=== PATIENT | female | born 1975 | race Caucasian/White ===

== ENCOUNTER 2020-02-14 14:34 | Inpatient (IN) | payer OTHER ==
[2020-02-14] MEDS ORDERED: LORazepam 2 MG/ML INJ IV PRN ×2 (14:41)
[2020-02-14] MEDS ORDERED: SODIUM CHLORIDE 0.9% 2,000 ML IV ONE (15:14)
[2020-02-14 15:17] LABS: Basophils % (A) 1 %; Eosinophils # (A) 0.1 k/uL (0-0.7); Eosinophils % (A) 2 %; HCT 38.4 % (34.0-46.0); HGB 12.4 gm/dL (11.4-16.0); Lymphocytes # (A) 1.1 k/uL (1.0-4.8); Lymphocytes % (A) 22 %; MCHC 32.2 g/dL (31.0-37.0); MCV 102.3 fL (80.0-100.0); Macrocytosis Slight; Mean Platelet Volume 9.2; Monocytes # (A) 0.5 k/uL (0-1.0); Monocytes % (A) 11 %; Neutrophils # (A) 3.1 k/uL (1.3-7.7); Neutrophils % (A) 62 %; Platelet Count 142 k/uL (150-450); RBC 3.75 m/uL (3.80-5.40); RDW 14.6 % (11.5-15.5)
[2020-02-14 15:27] LABS: Albumin 5.2 g/dL (3.5-5.0); Calcium 10.9 mg/dL (8.4-10.2); Magnesium 1.7 mg/dL (1.6-2.3); Total Bilirubin 1.2 mg/dL (0.2-1.3); Total Protein 8.7 g/dL (6.3-8.2)
--- NOTE | 2020-02-14 15:49 | ED ---
Alcohol HPI - General Source: patient, police, RN notes reviewed Mode of arrival: wheelchair Limitations: no limitations <Tomy Palmer - Last Filed: 02/14/20 17:40> <Patricia Whitehead - Last Filed: 02/15/20 00:11> - General Chief Complaint: Alcohol Stated Complaint: Detox Time Seen by Provider: 02/14/20 14:41 - History of Present Illness Initial Comments: 44-year-old female presents emergency Department with chief complaint of alcohol withdrawal. Patient states she drinks a half a gallon a day states that she has not drank in 4 days that she's been incarcerated. Patient is brought to emergency department as she's having severe hallucinations, withdrawal symptoms they report a seawall as high as 30. Patient has been placed on Valium. Patient has no physical complaints. She does admit to drug use. Patient has no history of hepatitis, or pancreatitis. Patient denies being suicidal or homicidal. (Tomy Palmer) - Related Data Home Medications Medication Instructions Recorded Confirmed Acetaminophen Tab [Tylenol] 650 mg PO TID PRN 02/14/20 02/14/20 Diazepam [Valium] See Taper PO DIRECTED 02/14/20 02/14/20 Promethazine [Phenergan] 25 mg PO TID PRN 02/14/20 02/14/20 Allergies Allergy/AdvReac Type Severity Reaction Status Date / Time No Known Allergies Allergy Unverified 02/14/20 15:57 Review of Systems ROS Other: All systems not noted in ROS Statement are negative. <Tomy Palmer - Last Filed: 02/14/20 17:40> ROS Other: All systems not noted in ROS Statement are negative. <Patricia Whitehead - Last Filed: 02/15/20 00:11> ROS Statement: Those systems with pertinent positive or pertinent negative responses have been documented in the HPI. Past Medical History History of Any Multi-Drug Resistant Organisms: None Reported Additional Past Surgical History / Comment(s): DNC Smoking Status: Current some day smoker Past Alcohol Use History: Abuse, Daily Past Drug Use History: None Reported <Tomy Palmer - Last Filed: 02/14/20 17:40> General Exam Limitations: no limitations General appearance: alert, in no apparent distress Head exam: Present: atraumatic, normocephalic, normal inspection Eye exam: Present: normal appearance, PERRL, EOMI. Absent: scleral icterus, conjunctival injection, periorbital swelling ENT exam: Present: normal exam, normal oropharynx, mucous membranes moist Neck exam: Present: normal inspection, full ROM. Absent: tenderness, meningismus, lymphadenopathy Respiratory exam: Present: normal lung sounds bilaterally. Absent: respiratory distress, wheezes, rales, rhonchi, stridor Cardiovascular Exam: Present: normal rhythm, tachycardia, normal heart sounds. Absent: systolic murmur, diastolic murmur, rubs, gallop, clicks GI/Abdominal exam: Present: soft, normal bowel sounds. Absent: distended, tenderness, guarding, rebound, rigid Neurological exam: Present: alert. Absent: oriented X3 Skin exam: Present: warm, dry, intact, normal color. Absent: rash <Tomy Palmer - Last Filed: 02/14/20 17:40> Course Vital Signs 02/14/20 02/14/20 14:35 18:00 Temperature 98.0 F 98.2 F Pulse Rate 112 H 101 H Respiratory 18 18 Rate Blood Pressure 123/92 138/76 O2 Sat by Pulse 99 99 Oximetry Medical Decision Making - Lab Data Result diagrams: 02/14/20 14:44 02/14/20 14:44 <Tomy Palmer - Last Filed: 02/14/20 17:40> - Lab Data Result diagrams: 02/14/20 14:44 02/14/20 14:44 <Patricia Whitehead - Last Filed: 02/15/20 00:11> - Medical Decision Making 44-year-old female presented for a withdrawal. Patient had persistent worsening symptoms last 4 days even while on Valium. Patient has a CIWA of 17. Patient will be admitted she does have a history of seizures. (Tomy Palmer) I was available for consultation in the emergency department. The history and physical exam were done by the midlevel provider. I was consulted for this patients care. I reviewed the case with the midlevel provider and based on their presentation of the patient, I agree with the assessment, medical decision making and plan of care as documented. Patients withdrawal seizures have been difficult to control while patient is incarcerated. Will admit patient to hospital on CIWA protocol. Spoke with Dr. Darling who accepted admission. Chart was dictated using OneTouch dictation software. Attempts were made to correct any dictation errors however some typographical errors may persist. Patient was seen during a national state of emergency due to the Covid-19 pandemic. (Patricia Whitehead) - Lab Data Lab Results 02/14/20 02/14/20 02/14/20 Range/Units 14:44 14:44 14:44 WBC 5.0 (3.8-10.6) k/uL RBC 3.75 L (3.80-5.40) m/uL Hgb 12.4 (11.4-16.0) gm/dL Hct 38.4 (34.0-46.0) % MCV 102.3 H (80.0-100.0) fL MCH 33.0 (25.0-35.0) pg MCHC 32.2 (31.0-37.0) g/dL RDW 14.6 (11.5-15.5) % Plt Count 142 L (150-450) k/uL Neutrophils % 62 % Lymphocytes % 22 % Monocytes % 11 % Eosinophils % 2 % Basophils % 1 % Neutrophils # 3.1 (1.3-7.7) k/uL Lymphocytes # 1.1 (1.0-4.8) k/uL Monocytes # 0.5 (0-1.0) k/uL Eosinophils # 0.1 (0-0.7) k/uL Basophils # 0.0 (0-0.2) k/uL Macrocytosis Slight Sodium 135 L (137-145) mmol/L Potassium 4.0 (3.5-5.1) mmol/L Chloride 101 (98-107) mmol/L Carbon Dioxide 29 (22-30) mmol/L Anion Gap 5 mmol/L BUN 39 H (7-17) mg/dL Creatinine 0.92 (0.52-1.04) mg/dL Est GFR (CKD-EPI)AfAm 87 (>60 ml/min/1.73 sqM) Est GFR (CKD-EPI)NonAf 76 (>60 ml/min/1.73 sqM) Glucose 97 (74-99) mg/dL Calcium 10.9 H (8.4-10.2) mg/dL Magnesium 1.7 (1.6-2.3) mg/dL Total Bilirubin 1.2 (0.2-1.3) mg/dL AST 32 (14-36) U/L ALT 35 H (4-34) U/L Alkaline Phosphatase 71 (38-126) U/L Total Protein 8.7 H (6.3-8.2) g/dL Albumin 5.2 H (3.5-5.0) g/dL Lipase 68 (23-300) U/L Urine Color Yellow Urine Appearance Clear (Clear) Urine pH 6.5 (5.0-8.0) Ur Specific [place] 1.023 (1.001-1.035) Urine Protein Trace H (Negative) Urine Glucose (UA) Negative (Negative) Urine Ketones Negative (Negative) Urine Blood Negative (Negative) Urine Nitrite Negative (Negative) Urine Bilirubin Negative (Negative) Urine Urobilinogen <2.0 (<2.0) mg/dL Ur Leukocyte Esterase Moderate H (Negative) Urine RBC 1 (0-5) /hpf Urine WBC 4 (0-5) /hpf Ur Squamous Epith Cells 6 H (0-4) /hpf Urine Bacteria Rare H (None) /hpf Hyaline Casts 8 H (0-2) /lpf Urine Mucus Rare H (None) /hpf Disposition <Tomy Palmer - Last Filed: 02/14/20 17:40> <Patricia Whitehead - Last Filed: 02/15/20 00:11> Clinical Impression: Alcohol withdrawal delirium Disposition: ADMITTED IP TO THIS HOSP Condition: Serious
[2020-02-14] MEDS ORDERED: NALOXONE 0.4 MG/ML 1 ML VIAL IV PRN (17:42)
[2020-02-14] MEDS ORDERED: ONDANSETRON 4 MG/2 ML VIAL IVP PRN (17:42)
[2020-02-14] MEDS ORDERED: SODIUM CHLORIDE 0.9% 1,000 ML with MVI, ADULT NO.4 WITH VIT K 10 ML, THIAMINE 100 MG, F... IV ONE ×4 (19:00)
[2020-02-14] MEDS: LORazepam 2 MG/ML INJ IV PRN (22:30)
[2020-02-14 22:43] LABS: Amphetamine Screen,Urine Not Detected (NotDetected); Barbiturate Screen,Urine Not Detected (NotDetected); Benzodiazepines Screen,Urine Detected (NotDetected); Cocaine Screen,Urine Not Detected (NotDetected); Methadone Screen, Urine Not Detected (NotDetected); Opiate Screen,Urine Not Detected (NotDetected); Oxycodone Screen, Urine Not Detected (NotDetected); Phencyclidine Screen,Urine Not Detected (NotDetected); Tricyclic Antidepressant,Urine Not Detected (NotDetected); Urn Cannabinoid Scrn Detected (NotDetected)
[2020-02-14 22:50] LABS: Appearance,Urine Clear (Clear); Bacteria,Urine Rare /hpf; Bilirubin,Urine Negative (Negative); Blood,Urine Negative (Negative); Color,Urine Yellow; Glucose,Urine (UA) Negative (Negative); Hyaline Casts,Urine 8 /lpf (0-2); Ketones,Urine Negative (Negative); Leukocyte Esterase,Urine Moderate (Negative); Mucus,Urine Rare /hpf; Nitrite,Urine Negative (Negative); PH, Urine 6.5 (5.0-8.0); Protein,Urine Trace (Negative); RBC,Urine 1 /hpf (0-5); Specific Gravity,Urine 1.023 (1.001-1.035); Squamous Epithelial Cell,Urine 6 /hpf (0-4); Urobilinogen,Urine <2.0 mg/dL (<2.0); WBC,Urine 4 /hpf (0-5)
--- NOTE | 2020-02-15 00:12 | P.HPIM ---
History of Present Illness H&P Date: 02/14/20 The patient is a 44-year-old female with a PMH of EtOH abuse and plaque psoriasis who presented to the emergency room under police custody for alcohol withdrawal. History was limited as the patient was agitated and did not wish to answer many questions. The patient had reportedly been incarcerated over the past few days and had become shaky and had been having hallucinations. The patient reports drinking half a gallon of vodka daily since the age of 16. She reports that her last drink was 4-5 days ago, and that she has been unable to drink since her incarceration. She reports a history of alcohol withdrawal seizures and admission to the ICU. Reports that her last seizure was many years ago. Patient reports that she has been getting the "shakes" and has been seeing things that aren't there. Reported some bruising of the arms and right knee pain which she attributes to her scuffle with the police over the past few days. Denied any additional complaints. She denied chest pain, shortness of breath, fever, chills. Denied nausea, vomiting, abdominal pain, or diarrhea. Laborator y evaluation revealed a sodium of 135, BUN 39, creatinine 0.92, calcium 10.9, AST 32, ALT 35, lipase 68, albumin 5.2, hemoglobin 12.4, with MCV 102.3, and platelet count 142. Review of Systems Pertinent positives and negatives as discussed in HPI, a complete review of sys tems was performed and all other systems are negative. Past Medical History History of Any Multi-Drug Resistant Organisms: None Reported Additional Past Surgical History / Comment(s): DNC Smoking Status: Current some day smoker Past Alcohol Use History: Abuse, Daily Past Drug Use History: None Reported Medications and Allergies Home Medications Medication Instructions Recorded Confirmed Type Acetaminophen Tab [Tylenol] 650 mg PO TID PRN 02/14/20 02/14/20 History Diazepam [Valium] See Taper PO DIRECTED 02/14/20 02/14/20 History Promethazine [Phenergan] 25 mg PO TID PRN 02/14/20 02/14/20 History Allergies Allergy/AdvReac Type Severity Reaction Status Date / Time No Known Allergies Allergy Unverified 02/14/20 15:57 Physical Exam Vitals: Vital Signs Temp Pulse Pulse Resp BP BP Pulse Ox 02/14/20 19:41 98.6 F 93 18 125/82 99 02/14/20 18:00 98.2 F 101 H 18 138/76 99 02/14/20 14:35 98.0 F 112 H 18 123/92 99 Intake and Output 02/14/20 02/14/20 02/14/20 06:59 14:59 22:59 Other: Weight 68.039 kg General: Disheveled female, non toxic, no distress, appears at stated age, normal weight Derm: Wood[place]-colored plaques noted on bilateral extensor surfaces including knees and elbows, no unusual ecchymoses, warm, dry Head: atraumatic, normocephalic, symmetric Eyes: EOMI, no lid lag, anicteric sclera, pupils equal round reactive to light ENT: Nose and ears atraumatic, no thrush, no pharyngeal erythema, tongue fasciculations noted Neck: No thyromegaly, no cervical lymphadenopathy, trachea midline, supple Mouth: no lip lesion, mucus membranes dry Cardiovascular: S1S2 reg, no murmur, positive posterior tibial pulse bilateral, no edema, capillary refill less than 2 seconds Lungs: CTA bilateral, no rhonchi, no rales , no accessory muscle use Abdominal: soft, nontender to palpation, no guarding, no appreciable organomegaly, normal bowel sounds Ext: no gross muscle atrophy, muscle strength 5 out of 5 in all 4 extremities grossly, no contractures, Neuro: CN II-XI grossly intact, light touch intact all 4 extremities, outstretched hand tremor noted Psych: Alert, oriented, appropriate affect Results CBC & Chem 7: 02/14/20 14:44 02/14/20 14:44 Labs: Abnormal Lab Results - Last 24 Hours (Table) 02/14/20 02/14/20 Range/Units 14:44 14:44 RBC 3.75 L (3.80-5.40) m/uL MCV 102.3 H (80.0-100.0) fL Plt Count 142 L (150-450) k/uL Sodium 135 L (137-145) mmol/L BUN 39 H (7-17) mg/dL Calcium 10.9 H (8.4-10.2) mg/dL ALT 35 H (4-34) U/L Total Protein 8.7 H (6.3-8.2) g/dL Albumin 5.2 H (3.5-5.0) g/dL Assessment and Plan Plan: Alcohol withdrawal -Thiamine, folate, multivitamin -IV fluids -CIWA protocol -Monitor electrolytes daily and replace as needed -Fall, aspiration, seizure precautions Elevated BUN, Hypercalcemia -Likely secondary to dehydration -Continue with IV fluids Plaque psoriasis -Advised patient to follow-up as an outpatient with her PCP DVT prophylaxis -IPCDs The patient is admitted with an anticipated greater than 2 midnight stay for evaluation of EtOH withdrawal CODE STATUS: Full Code Discussed with: Patient Anticipated discharge date: 2-[address]: Police custody A total of 40 minutes was spent on the care of this complex patient more than 50% of the time was spent in counseling and care coordination.
[2020-02-15 05:49] LABS: HCT 35.5 % (34.0-46.0); HGB 11.6 gm/dL (11.4-16.0); MCHC 32.6 g/dL (31.0-37.0); MCV 104.4 fL (80.0-100.0); Macrocytosis Moderate; Mean Platelet Volume 8.3; Platelet Count 137 k/uL (150-450); RDW 14.6 % (11.5-15.5); WBC 4.1 k/uL (3.8-10.6)
[2020-02-15] MEDS: FOLIC ACID-VIT B COMPLEX-VIT C 1 CAP PO SCH (08:24)
[2020-02-15] MEDS: THIAMINE 200 MG in SODIUM CHLORIDE 0.9% 100 ML IVPB SCH ×2 (08:24→20:48)
[2020-02-15 09:52] LABS: African American GFR (CKD) 103.2 (60.0-200.0); Albumin/Globulin Ratio 1.9 (1.60-3.17); Anion Gap 7.3 mmol/L (4.00-12.00); BUN/Creat Ratio 27.5 Ratio (12.00-20.00); Calcium 8.8 mg/dL (8.7-10.3); Carbon Dioxide 26.7 mmol/L (21.6-31.8); Globulin 2.1 g/dL (1.6-3.3); Magnesium 1.5 mg/dL (1.5-2.4); Potassium 3.2 mmol/L (3.5-5.5); Total Bilirubin 0.8 mg/dL (0.3-1.2); Total Protein 6.1 g/dL (6.2-8.2)
[2020-02-15] MEDS: LORazepam 2 MG/ML INJ IV PRN ×3 (12:44→20:47)
[2020-02-15] MEDS ORDERED: POTASSIUM CHLORIDE ER 20 MEQ TAB.ER PO STA (16:23)
--- NOTE | 2020-02-15 16:31 | P.PN ---
Subjective Progress Note Date: 02/15/20 (delayed charting seen at 1140) Principal diagnosis: etoh withdrawal Patient is 44-year-old female with alcohol abuse and plaque psoriasis presented to the emergency department in police custody for alcohol withdrawal. Patient has been incarcerated since 02/09 began having hallucinations and shaking. She reported drinking approximately one half gallon daily since the age of 16. In the ER she underwent an extensive evaluation. On arrival she was tachycardic with pulse of 112. Initial laboratory analysis showed platelets of 142, sodium 135, BUN 39, calcium 10.9, ALT 35, albumin 5.2, urine was positive for benzodiazepines and marijuana, urinalysis moderate leukocyte esterase. She had elevated CIWA score and she was therefore admitted for management of her alcohol withdrawal. Initially she had improvement of this with use of the CIWA score however on the afternoon of 02/14 she began having recurrent riders and diaphoresis. Patient seen and examined at bedside. She reports feeling "terrible". She continues to try to keep her eyes closed does not make eye contact, refuses to answer questions because she "feels awful". She refuses to move her left arm for me to check for asterixis secondary to there being an IV in her arm. She refuses to hold on her covers initially. She is very noncompliant with examination and questioning. She is also inconsistent on her last alcohol was initially saying it was one day ago but then stating she's been incarcerated for 5 days. Objective - Vital Signs Vital signs: Vital Signs Temp 98.5 F 02/15/20 05:25 Pulse 75 02/15/20 05:25 Resp 16 02/15/20 05:25 BP 119/77 02/15/20 05:25 Pulse Ox 98 02/15/20 05:25 Intake & Output 02/14/20 02/15/20 02/15/20 18:59 06:59 18:59 Intake Total 360 100 Balance 360 100 Weight 68.039 kg 68.039 kg Intake: Intake, IV Titration 100 Amount Sodium Chloride 0.9% 1, 100 000 ml @ 100 mls/hr IV . Q10H7M ONE with Mvi, Adult No.4 with Vit K 10 ml with Thiamine 100 mg with Folic Acid 1 mg Rx#: [id number] Oral 360 Other: # Voids 2 - Exam General: non toxic, no distress, appears at stated age Derm: warm, dry Head: atraumatic, normocephalic, symmetric Eyes: EOMI, no lid lag, anicteric sclera Mouth: no lip lesion, mucus membranes moist Cardiovascular: S1S2 reg, no murmur, positive posterior tibial pulse bilateral, Lungs: CTA bilateral, no rhonchi, no rales, no accessory muscle use Abdominal: soft, nontender to palpation, no guarding, no appreciable organomegaly Ext: no gross muscle atrophy, no edema, no contractures Neuro: CN II-XI grossly intact, no focal neuro deficits, no asterisix, no tremors Psych: Alert, oriented, appropriate affect - Labs CBC & Chem 7: 02/15/20 05:31 02/15/20 05:31 Labs: Abnormal Lab Results - Last 24 Hours (Table) 02/14/20 02/14/20 02/15/20 Range/Units 14:44 22:25 05:31 RBC 3.40 L (3.80-5.40) m/uL MCV 104.4 H (80.0-100.0) fL Plt Count 137 L (150-450) k/uL Potassium (3.5-5.5) mmol/L BUN/Creatinine Ratio (12.00-20.00) Ratio Glucose (70-110) mg/dL Total Protein (6.2-8.2) g/dL Urine Protein Trace H (Negative) Ur Leukocyte Esterase Moderate H (Negative) Ur Squamous Epith Cells 6 H (0-4) /hpf Urine Bacteria Rare H (None) /hpf Hyaline Casts 8 H (0-2) /lpf Urine Mucus Rare H (None) /hpf U Benzodiazepines Scrn Detected H (NotDetected) U Marijuana (THC) Screen Detected H (NotDetected) 02/15/20 Range/Units 05:31 RBC (3.80-5.40) m/uL MCV (80.0-100.0) fL Plt Count (150-450) k/uL Potassium 3.2 L (3.5-5.5) mmol/L BUN/Creatinine Ratio 27.50 H (12.00-20.00) Ratio Glucose 116 H (70-110) mg/dL Total Protein 6.1 L (6.2-8.2) g/dL Urine Protein (Negative) Ur Leukocyte Esterase (Negative) Ur Squamous Epith Cells (0-4) /hpf Urine Bacteria (None) /hpf Hyaline Casts (0-2) /lpf Urine Mucus (None) /hpf U Benzodiazepines Scrn (NotDetected) U Marijuana (THC) Screen (NotDetected) Assessment and Plan Assessment: Alcohol withdrawal -[facility] protocol -Thiamine, folic acid, multivitamins -IV fluids -Seizure precautions -Supportive care Hypokalemia -Replace and recheck in a.m. thrombocytopenia -Suspect secondary to underlying liver disease versus bone marrow suppression from EtOH use -Follow CBC intermittently Dehydration, resolved Hypercalcemia, resolved Plaque psoriasis-outpatient follow-up DVT prophylaxis: SCDs Discussed with: Patient, nursing Anticipated discharge: in AM Anticipated discharge place: [facility] A total of 35 minutes was spent on the care of this complex patient more than 50% of the time was spent in counseling and care coordination.
[2020-02-15 20:34] VITALS: RESP 18
[2020-02-16 03:59] LABS: HCT 39.3 % (34.0-46.0); HGB 12.5 gm/dL (11.4-16.0); MCH 33.7 pg (25.0-35.0); MCHC 31.8 g/dL (31.0-37.0); MCV 106.1 fL (80.0-100.0); Macrocytosis Moderate; Mean Platelet Volume 8.8; Platelet Count 150 k/uL (150-450); RBC 3.71 m/uL (3.80-5.40); RDW 14.8 % (11.5-15.5)
[2020-02-16] MEDS: THIAMINE 200 MG in SODIUM CHLORIDE 0.9% 100 ML IVPB SCH (08:25)
[2020-02-16] MEDS: FOLIC ACID-VIT B COMPLEX-VIT C 1 CAP PO SCH (08:26)
[2020-02-16 09:41] LABS: African American GFR (CKD) 127.6 (60.0-200.0); Albumin 4.1 g/dL (3.80-4.90); Albumin/Globulin Ratio 1.78 (1.60-3.17); Anion Gap 9.7 mmol/L (4.00-12.00); Carbon Dioxide 26.3 mmol/L (21.6-31.8); Globulin 2.3 g/dL (1.6-3.3); Magnesium 1.5 mg/dL (1.5-2.4); Non-African American GFR(CKD) 110.1 (60.0-200.0); Potassium 3.4 mmol/L (3.5-5.5); Total Bilirubin 0.6 mg/dL (0.3-1.2); Total Protein 6.4 g/dL (6.2-8.2)
[2020-02-16 11:25] VITALS: BP 128/83; PULSE 70; TEMP 98.5
--- NOTE | 2020-02-16 12:06 | P.DS ---
Providers Date of admission: 02/14/20 17:29 Expected date of discharge: 02/16/20 Attending physician: Ambika Bruno MD Primary care physician: Stated None Hospital Course: Discharge Diagnosis: ETOH withdrawal Hypokalemia Thrombocytopenia Dehydration Hypercalcemia Plaque psoriasis Hospital Course: Patient is 44-year-old female with alcohol abuse and plaque psoriasis presented to the emergency department in police custody for alcohol withdrawal. Patient has been incarcerated since 02/09 began having hallucinations and shaking. She reported drinking approximately one half gallon daily since the age of 16. In the ER she underwent an extensive evaluation. On arrival she was tachycardic with pulse of 112. Initial laboratory analysis showed platelets of 142, sodium 135, BUN 39, calcium 10.9, ALT 35, albumin 5.2, urine was positive for benzodiazepines and marijuana, urinalysis moderate leukocyte esterase. She had elevated CIWA score and she was therefore admitted for management of her alcohol withdrawal. Initially she had improvement of this with use of the CIWA score however on the afternoon of 02/14 she began having recurrent riders and diaphoresis. Patient seen and examined at bedside. Not feeling well. + nausea, states she is sweating and having tremors. [place] not diaphoretic on exam and no tremor when distracted. Vital signs reviewed and stable. General: non toxic, no distress, appears at stated age Derm: warm, dry Head: atraumatic, normocephalic, symmetric Eyes: EOMI, no lid lag, anicteric sclera Mouth: no lip lesion, mucus membranes moist Cardiovascular: S1S2 reg, no murmur, positive posterior tibial pulse bilateral, q Lungs: CTA bilateral, no rhonchi, no rales , no accessory muscle use Abdominal: soft, nontender to palpation, no guarding, no appreciable organomegaly Ext: no gross muscle atrophy, no edema, no contractures Neuro: CN II-XI grossly intact, no focal neuro deficits Psych: Alert, oriented, appropriate affect A total of 35 minutes of time were spent preparing this complex discharge summary . Patient Condition at Discharge: Stable Plan - Discharge Summary New Discharge Prescriptions: New Folic Acid 1 mg PO DAILY #15 tablet Thiamine [Vitamin B-1] 100 mg PO DAILY #30 tablet Diazepam [Valium] See Taper PO Q8H 8 Days #18 tab Continue Promethazine [Phenergan] 25 mg PO TID PRN PRN Reason: Nausea Acetaminophen Tab [Tylenol] 650 mg PO TID PRN PRN Reason: Fever And/ Or Pain Discontinued Diazepam [Valium] See Taper PO DIRECTED Discharge Medication List Acetaminophen Tab [Tylenol] 650 mg PO TID PRN 02/14/20 [History] Promethazine [Phenergan] 25 mg PO TID PRN 02/14/20 [History] Folic Acid 1 mg PO DAILY #15 tablet 02/15/20 [Rx] Thiamine [Vitamin B-1] 100 mg PO DAILY #30 tablet 02/15/20 [Rx] Diazepam [Valium] See Taper PO Q8H 8 Days #18 tab 02/16/20 [Rx] Follow up Appointment(s)/Referral(s): None,Stated [Primary Care Provider] - 1-2 days Patient Instructions/Handouts: Thiamine (By mouth), Folic Acid (By mouth), Abuse of Alcohol (DC) Activity/Diet/Wound Care/Special Instructions: Activity: as tolerated Diet: regular Discharge Disposition: DC/TRANSFER COURT/LAW
== END 2020-02-16 14:35 | DRG 897 ==
LOC: EC 14:34 → 6NMEDSUR 17:29
PROVIDERS: ADMIT Family Medicine; ATTEND Family Medicine
DX: F10.231 Alcohol dependence with withdrawal delirium (principal); D69.6 Thrombocytopenia, unspecified; G40.909 Epilepsy, unspecified, not intractable, without status epilepticus; L40.0 Psoriasis vulgaris; E86.0 Dehydration; F17.200 Nicotine dependence, unspecified, uncomplicated; E83.52 Hypercalcemia; E87.6 Hypokalemia; R94.4 Abnormal results of kidney function studies; Z91.19 Patient's noncompliance with other medical treatment and regimen
CPT/HCPCS: 36415; 80053; 80306; 81001; 83690; 83735; 85025; 85027; 96361; 96374; 99285